=== PATIENT | male | born 1975 | race American Indian/Alaskan Native ===

== ENCOUNTER 2018-10-13 13:08 | Emergency (ER) | payer OTHER ==
[2018-10-13] MEDS ORDERED: ASPIRIN PO ONE (13:21)
--- NOTE | 2018-10-13 13:21 | Event Note ---
ED Screening Note ED Screening Note: CP SOB SHARP PAIN WHILE CUTTING GRASS RX NONE PMH NONE CIG THC ETOH MOM/DAD CAD PSH R ANKLE/TIB/FIB APPY This initial assessment/diagnostic orders/clinical plan/treatment(s) is/are subject to change based on patients health status, clinical progression and re- assessment by fellow clinical providers in the ED. Further treatment and workup at subsequent clinical providers discretion. Patient/guardian urged not to elope from the ED as their condition may be serious if not clinically assessed and managed. Initial orders include: RO ACS
[2018-10-13 13:53] LABS: Basophils # (Auto) 0.1 K/mm3 (0.0-0.1); Basophils % (Auto) 0.6 % (0.0-1.8); Hematocrit 45.2 % (35.5-45.6); Hemoglobin 14.9 gm/dl (11.8-15.2); Lymphocytes # (Auto) 1.5 K/mm3 (1.2-5.4); Lymphocytes % (Auto) 16.5 % (13.4-35.0); Mean Corpuscular HGB Conc 33 % (32-34); Mean Corpuscular Volume 90 fl (84-94); Monocytes # (Auto) 0.8 K/mm3 (0.0-0.8); Monocytes % (Auto) 9.1 % (0.0-7.3); Platelet Count 283 K/mm3 (140-440); Red Blood Count 5.02 M/mm3 (3.65-5.03); Red Cell Distribution Width 13.8 % (13.2-15.2)
--- NOTE | 2018-10-13 14:04 | XRay Report ---
PA AND LATERAL CXR HISTORY: Chest pain. COMPARISON: None FINDINGS: Cardiomediastinal silhouette: Normal cardiac size. Normal mediastinal contours. Lungs: Normal expansion. Normal lung aeration. No pleural effusions. No pneumothorax. Pulmonary vascularity: Normal. Support hardware: None. Additional findings: Mild gynecomastia. IMPRESSION: 1. No acute cardiopulmonary process. Signer Name: Roel Spencer MD Signed: 10/13/2018 1:59 PM Workstation Name: [id number]
[2018-10-13 14:13] LABS: Alanine Aminotransferase 17 units/L (7-56); BUN/Creatinine Ratio 11; Blood Urea Nitrogen 11 mg/dL (9-20); Calcium 9.8 mg/dL (8.4-10.2); Hemolysis Index 8
--- NOTE | 2018-10-13 17:42 | Emergency Department Report ---
<LEANDRO MICHELLE - Last Filed: 10/13/18 20:42> ED Chest Pain HPI - General Chief Complaint: Chest Pain Stated Complaint: CHEST PAIN Time Seen by Provider: 10/13/18 13:21 - Related Data Previous Rx's Medication Instructions Recorded Last Taken Type traMADol [Ultram] 50 mg PO Q6HR PRN #10 tablet 10/13/18 Unknown Rx Allergies Allergy/AdvReac Type Severity Reaction Status Date / Time No Known Allergies Allergy Unverified 10/13/18 13:09 ED Past Medical Hx - Medications Home Medications: Home Medications Medication Instructions Recorded Confirmed Last Taken Type traMADol [Ultram] 50 mg PO Q6HR PRN #10 tablet 10/13/18 Unknown Rx ED Medical Decision Making - Lab Data Result diagrams: 10/13/18 13:28 10/13/18 13:28 - Radiology Data [facility] [address] [place] [address] Cat Scan Report Signed Patient: CONRAD DOMINGUEZ MR #: [id number] : 1975 Acct:[id number] Age/Sex: 42 / M ADM Date: 10/13/18 Loc: ED Attending Dr: Ordering Physician: LENNOX CALLOWAY DO Date of Service: 10/13/18 Procedure(s): CT angio chest Accession Number(s): [id number] cc: LENNOX CALLOWAY DO CTA CHEST WITH IV CONTRAST, 10/13/2018 INDICATION: Chest pain. Shortness of breath. TECHNIQUE: Axial CT images were obtained through the chest after injection of IV contrast. Coronal oblique 2-D reconstruction images were produced. 3 plane MIP reconstruction images were produced at an independent workstation. All CTs at this facility utilize dose reduction techniques including automated exposure control, iterative reconstruction and weight based dosing when appropriate to reduce patient radiation dose to as low as reasonable achievable. COMPARISON: Chest radiograph, 10/13/2018 FINDINGS: There is no evidence of central or segmental filling defects within the pulmonary arteries to suggest pulmonary embolism. The heart is normal in size. There is no evidence of pericardial effusion. The thoracic aorta appears normal in caliber. Eval uation of the lung parenchyma demonstrates emphysematous change at the lung apices. There is no focal airspace disease or pleural effusion. Limited evaluation of the upper abdomen shows no evidence of acute abnormality. Evaluation of bony structures demonstrates no evidence of acute bony abnormality . IMPRESSION: 1. No evidence of pulmonary embolism or acute parenchymal process. 2. Emphysematous change of the lungs. Signer Name: Josette Ramirez MD Signed: 10/13/2018 8:34 PM Workstation Name: [id number] Transcribed By: GAEL Dictated By: Josette Ramirez MD Electronically Authenticated By: Josette Ramirez MD Signed Date/Time: 10/13/182033 DD/ 29 TD/TT: - Medical Decision Making hAs a low heart score. Patient's troponin is negative CTA of the chest was negative for pulmonary embolus. She will be sent to cardiology for close outpatient follow-up. ED Disposition Clinical Impression: Atypical chest pain Chest pain Qualifiers: Chest pain type: unspecified Qualified Code(s): R07.9 - Chest pain, unspecified Disposition: DC-01 TO HOME OR SELFCARE Is pt being admited?: No Does the pt Need Aspirin: No Condition: Stable Instructions: Chest Pain (ED) Additional Instructions: You will be [facility] for an outpatient follow-up appointment in the next 2 days. Please return to the emergency department immediately with any return or worsening of your chest pain, or with any acute distress. Prescriptions: traMADol [Ultram] 50 mg PO Q6HR PRN #10 tablet PRN Reason: Pain Referrals: [facility] [Provider Group] - 2-3 Days <LENNOX CALLOWAY - Last Filed: 10/15/18 10:03> ED Chest Pain HPI - General Source: patient Mode of arrival: Ambulatory Limitations: No Limitations - History of Present Illness Initial Comments: 42-year-old -[place] male presents to the emergency department with complaint of some midsternal to left-sided chest pain that has been going on intermittently for the past 3 days. It worsened slightly today while the patient was working outside. It is mostly a sharp pain but sometimes it feels like a pressure sensation, like someone is sitting on his chest. It is associated with some shortness of breath but he denies any fever, nausea, vomiting or back pain. He denies any past medical history. He is a tobacco smoker but denies any illicit drug use. No recent travel or sick contacts at home. He does not have a primary care physician. Heart Score - HEART Score History: Slightly suspicious EKG: Non-specific Age: < 45 Risk factors: 1-2 risk factors Troponin: < normal limit HEART Score: 2 - Critical Actions Critical Actions: 0-3 pts:0.9-1.7%risk of adverse cardiac event.Candidate for discharge ED Review of Systems ROS: Stated complaint: CHEST PAIN Other details as noted in HPI Comment: All other systems reviewed and negative Constitutional: denies: chills, fever Eyes: denies: eye pain, vision change ENT: denies: ear pain, throat pain Respiratory: shortness of breath. denies: cough Cardiovascular: chest pain. denies: palpitations Gastrointestinal: denies: abdominal pain, vomiting Genitourinary: denies: dysuria, frequency Musculoskeletal: denies: back pain, arthralgia Skin: denies: rash, lesions Neurological: denies: headache, weakness ED Past Medical Hx - Past Medical History Previous Medical History?: No - Surgical History Past Surgical History?: No - Social History Smoking Status: Current Every Day Smoker Substance Use Type: Marijuana ED Physical Exam - General Limitations: No Limitations - Other Other exam information: GENERAL: The patient is well-developed well-nourished. HENT: Normocephalic. Atraumatic. Patient has moist mucous membranes. EYES: Extraocular motions are intact. NECK: Supple. Trachea is midline. CHEST/LUNGS: Clear to auscultation. There is no respiratory distress noted. HEART/CARDIOVASCULAR: Regular. There is no tachycardia. There is no murmur. ABDOMEN: Abdomen is soft, nontender. Patient has normal bowel sounds. There is no abdominal distention. SKIN: Skin is warm and dry. NEURO: The patient is awake, alert, and oriented. The patient is cooperative. The patient has no focal neurologic deficits. The patient has normal speech. MUSCULOSKELETAL: There is no tenderness or deformity. There is no limitation range of motion. There is no evidence of acute injury. ED Course Vital Signs 10/13/18 10/13/18 10/13/18 13:24 17:16 18:23 Temperature 97.8 F Pulse Rate 60 68 76 Respiratory 16 16 16 Rate Blood Pressure 127/90 Blood Pressure 156/98 134/89 [Left] O2 Sat by Pulse 100 100 95 Oximetry 10/13/18 10/13/18 19:52 21:10 Temperature Pulse Rate 80 86 Respiratory 21 16 Rate Blood Pressure Blood Pressure 133/84 128/95 [Left] O2 Sat by Pulse 100 99 Oximetry JAVAN score - Javan Score Age > 65: (0) No Aspirin use within the Past 7 Days: (0) No 3 or more CAD Risk Factors: (0) No 2 or more Angina events in past 24 hrs: (1) Yes Known CAD with more than 50% Stenosis: (0) No Elevated Cardiac Markers: (0) No ST Deviation Greater than 0.5mm: (0) No JAVAN Score: 1 ED Medical Decision Making - Lab Data Result diagrams: 10/13/18 13:28 10/13/18 13:28 - EKG Data -: EKG Interpreted by Me EKG shows normal: sinus rhythm (ventricular trigeminy), axis, intervals, QRS complexes (LVH), ST-T waves (early repolarization) Rate: normal - EKG Data When compared to previous EKG there are: previous EKG unavailable Interpretation: other (sinus rhythm, ventricular trigeminy, LVH, early repolarization) - Radiology Data Radiology results: image reviewed interpreted by me: Chest x-ray does not show any acute process. There are no pleural effusions, obvious pneumonia and there is no pneumothorax. - Medical Decision Making Patient has been having some intermittent chest pains over the past 2 days. His first EKG showed some particular trigeminy and the repeat was down to bigeminy. Negative troponins 2. Slightly elevated and equivocal d-dimer so CTA was done. CT of the chest was negative for pulmonary embolism. The patient has been r eferred to outpatient cardiology as part of our protocol due to his low heart score and he will be seen for follow-up within 48 hours. - Differential Diagnosis KS, PE, gastritis, GERD Critical Care Time: No Critical care attestation.: If time is entered above; I have spent that time in minutes in the direct care of this critically ill patient, excluding procedure time. ED Disposition Is pt being admited?: No Time of Disposition: 20:33
[2018-10-13 20:01] LABS: Bilirubin,Urine NEG (Negative); Blood,Urine NEG (Negative); Color,Urine Yellow (Yellow); Urobilinogen,Urine < 2.0 mg/dL (<2.0)
--- NOTE | 2018-10-13 20:38 | Cat Scan Report ---
CTA CHEST WITH IV CONTRAST, 10/13/2018 INDICATION: Chest pain. Shortness of breath. TECHNIQUE: Axial CT images were obtained through the chest after injection of IV contrast. Coronal oblique 2-D reconstruction images were produced. 3 plane MIP reconstruction images were produced at an [employer] workstation. All CTs at this facility utilize dose reduction techniques including automated expos ure control, iterative reconstruction and weight based dosing when appropriate to reduce patient radi ation dose to as low as reasonable achievable. COMPARISON: Chest radiograph, 10/13/2018 FINDINGS: There is no evidence of central or segmental filling defects within the pulmonary arteries to suggest pulmonary embolism. The heart is normal in size. There is no evidence of pericardial effusion. The t horacic aorta appears normal in caliber. Evaluation of the lung parenchyma demonstrates emphysematous change at the lung apices. There is no focal airspace disease or pleural effusion. Limited evaluation of the upper abdomen shows no evidence of acute abnormality. Evaluation of bony st ructures demonstrates no evidence of acute bony abnormality. IMPRESSION: 1. No evidence of pulmonary embolism or acute parenchymal process. 2. Emphysematous change of the lungs. Signer Name: Josette Ramirez MD Signed: 10/13/2018 8:34 PM Workstation Name: [id number]
[2018-10-13 21:10] VITALS: BP 128/95
== END 2018-10-13 21:10 | disposition home or self-care (01) ==
LOC: ED 13:08
DX: R07.89 Other chest pain (principal); F17.200 Nicotine dependence, unspecified, uncomplicated; F12.10 Cannabis abuse, uncomplicated
CPT/HCPCS: 36415; 71046; 71275; 80053; 81001; 84484; 85025; 85379; 93005; 93010; 99285; Q9967